=== PATIENT | female | born 1995 | race African-American/Black ===

== ENCOUNTER 2018-05-05 15:13 | Emergency (ER) | payer OTHER ==
[~2018-05-05] VITALS: Ht 175.3 cm; Wt 66.7 kg
--- NOTE | 2018-05-05 15:13 | NUR ---
Pt placed in bed 2 by ACLS
--- NOTE | 2018-05-05 15:20 | NUR ---
Pt bib EMS for tonic-clonic seizure with h/o seizures. Pt taking Keppra for seizures.Pt has avulsion to upper lip.Pt reports pain face pain and STORM.
--- NOTE | 2018-05-05 15:22 | NUR ---
ER at bedside examining patient.
[2018-05-05 15:24] VITALS: BP_SYST 111
[2018-05-05] MEDS ORDERED: LIDOCAINE/EPI 1% 1:100000 20 ML VIAL IJ ONE (15:30)
[2018-05-05] MEDS ORDERED: ACETAMINOPHEN 325 MG TABLET PO ONE (15:30)
--- NOTE | 2018-05-05 15:30 | NUR ---
Pt medicated tolerated well.
--- NOTE | 2018-05-05 15:54 | NUR ---
Suture setup for wound repair
[2018-05-05 15:57] LABS: CALCIUM 8.7 mg/dL (8.4-11.0); CREATININE 0.99 mg/dL (0.55-1.30)
[2018-05-05 16:07] LABS: BASOPHILS # (AUTO) 0.1 K/uL (0.0-0.2); BASOPHILS % (AUTO) 0.7 % (0.0-2.0); EOSINOPHILS # (AUTO) 0.1 K/uL (0.0-0.4); EOSINOPHILS % (AUTO) 1.6 % (0.0-4.0); HEMATOCRIT 36.8 % (36-48); HEMOGLOBIN 12.3 g/dL (12.0-16.0); LYMPHOCYTES # (AUTO) 1.5 K/uL (1.0-5.5); LYMPHOCYTES % (AUTO) 21.1 % (20.5-51.5); MEAN CORPUSCULAR HEMOGLOBIN 30 pg (27-31); MEAN CORPUSCULAR HGB CONC 33 % (32-36); MEAN CORPUSCULAR VOLUME 90 fL (79.0-98.0); MONOCYTES # (AUTO) 0.7 K/uL (0.0-1.0); MONOCYTES % (AUTO) 9.4 % (1.7-9.3); NEUTROPHILS # (AUTO) 4.8 K/uL (1.8-7.7); NEUTROPHILS % (AUTO) 67.2 % (40.0-70.0); PLATELET COUNT (AUTO) 399 K/uL (130-430); RED BLOOD CELL COUNT(AUTO) 4.07 MIL/uL (4.2-6.2); RED CELL DISTRIBUTION WIDTH 15.1 % (9.0-15.0); WHITE BLOOD COUNT (AUTO) 7.2 K/uL (4.8-10.8)
[2018-05-05 16:14] LABS: PROTHROMBIN TIME 10.6 SECS (9.5-12.5)
--- NOTE | 2018-05-05 16:28 | NUR ---
Wound repair done tolerated well.
--- NOTE | 2018-05-05 16:41 | NUR ---
No seizure activity noted
--- NOTE | 2018-05-05 17:20 | NUR ---
Pt to [facility] for urine collection.
[2018-05-05 17:27] LABS: BILIRUBIN,URINE NEGATIVE (NEGATIVE); BLOOD, URINE 3+ (NEGATIVE); CLARITY/URINE SL HAZY (CLEAR); COLOR,URINE RED (YELLOW); GLUCOSE,URINE NEGATIVE (NEGATIVE); KETONES,URINE NEGATIVE (NEGATIVE); LEUKOCYTE ESTERASE ,URINE NEGATIVE (NEGATIVE); NITRITE, URINE NEGATIVE (NEGATIVE); PH,URINE 8.5 (5.0-8.0); PROTEIN URINE 1+ (NEGATIVE); UROBILINOGEN,URINE 0.2 (0.2-1.0)
[2018-05-05] MEDS ORDERED: BACITRACIN 1 GM OINT TP ONE (17:36)
[2018-05-05 17:40] LABS: BACTERIA,URINE FEW /HPF (None Seen); WBC,URINE 0-3 /HPF (0-3)
[2018-05-05 17:41] LABS: MUCUS,URINE None Seen /LPF (None Seen)
--- NOTE | 2018-05-05 17:58 | NUR ---
Pt medicated with seizure medication.
[2018-05-05] MEDS ORDERED: levETIRAcetam 500 MG TABLET PO ONE (18:00)
--- NOTE | 2018-05-05 18:00 | NUR ---
Patient transported to radiology via gurney, accompanied by rad staff .
--- NOTE | 2018-05-05 18:12 | NUR ---
Returned from radiology, [place] [facility]
--- NOTE | 2018-05-05 18:49 | NUR ---
Dr. Castro at bedside for re-assessment
--- NOTE | 2018-05-05 19:00 | NUR ---
Patient given written and verbal discharge instructions and verbalizes understanding. ER MD discussed with patient the results and treatment provided. Patient in stable condition. ID arm band removed. IV catheter removed intact and dressing applied, no active bleeding. Rx of keppra,bactrim,bactricin,motrin, given. Patient educated on pain management and to follow up with PMD. Pain Scale 0. Opportunity for questions provided and answered. Medication side effect fact sheet provided.
[2018-05-05 19:10] VITALS: BP_SYST 113
== END 2018-05-05 19:00 | disposition home or self-care (01) ==
LOC: EDBD 15:13 → SED 15:13
DX: S01.511A Laceration without foreign body of lip, initial encounter (principal); R56.9 Unspecified convulsions; M25.511 Pain in right shoulder; W19.XXXA Unspecified fall, initial encounter; Y93.89 Activity, other specified; Y92.89 Other specified places as the place of occurrence of the external cause; Y99.8 Other external cause status
CPT/HCPCS: 36415; 70450-TC; 73030; 80048; 81000-TC; 81025; 84702-TC; 85025; 85610-TC; 85730-TC; 93005; 99284